=== PATIENT | male | born 1975 | race Caucasian/White ===

== ENCOUNTER → 2017-06-04 | Outpatient (CLI) | payer BC | END | disposition home or self-care (01) | LOC: GMAJ 11:09 | PROVIDERS: ATTEND Family Medicine | DX: R35.1 Nocturia (principal) ==

== ENCOUNTER → 2019-01-19 | Outpatient (CLI) | payer BC ==
--- NOTE | 2019-01-19 10:41 | RAD ---
EXAM DESCRIPTION: Pelvis CLINICAL HISTORY: 43 years Male, M25.561, M25.551 COMPARISON: None. TECHNIQUE: AP radiograph of the pelvis was performed. FINDINGS: The pelvic ring appears grossly intact on this single AP radiograph. No acute fracture or dislocation. Bilateral sacroiliac joints appear normal. Mild degenerative changes are identified in bilateral hip joints. The visualized lumbo-sacral spine demonstrates mild degenerative changes. IMPRESSION: Single AP radiograph of the pelvis demonstrates grossly intact pelvic ring. Mild bilateral hip osteoarthritis. Electronically signed by: Shanika Brantley MD 01/19/2019 10:38 AM CDT
--- NOTE | 2019-01-19 10:42 | RAD ---
EXAM DESCRIPTION: Knee,Right Complete CLINICAL HISTORY: 43 years Male, M25.561, M25.551 TECHNIQUE: 4 views of the right knee were performed. COMPARISON: None available. FINDINGS: The visualized bones appear well mineralized. No acute fracture or dislocation. Small suprapatellar joint effusion is noted. The soft tissues appear grossly unremarkable. IMPRESSION: Small suprapatellar joint effusion. No acute abnormality. Electronically signed by: Shanika Brantley MD 01/19/2019 10:39 AM CDT
== END ==
LOC: RAD 08:25
PROVIDERS: ATTEND Orthopaedic Surgery
DX: M25.561 Pain in right knee (principal); M25.461 Effusion, right knee; M16.0 Bilateral primary osteoarthritis of hip; M25.551 Pain in right hip

== ENCOUNTER → 2019-01-22 | Outpatient (CLI) | payer BC ==
--- NOTE | 2019-01-22 12:13 | MRI ---
MRI right knee without contrast INDICATION: Knee pain lateral meniscal tear TECHNIQUE: Noncontrast MR imaging right knee standard protocol FINDINGS: Small to moderate joint effusion. Small Reynolds's cyst. Mild extensor tendinosis. Mild interstitial mucoid degeneration ACL without rupture. PCL is intact. Extensive horizontal and oblique degenerative tear with free edge truncation and mild volume loss body posterior horn and anterior horn medial meniscus. Mild degenerative signal lateral meniscus. Proximal small ganglion near the proximal tib-fib joint. There is evidence of previous arthroscopy with scarring anterior medial. Therefore some of the meniscal volume loss may be postsurgical. Collateral ligaments are intact. No advanced arthrosis. IMPRESSION: Small to moderate joint effusion and small Reynolds's cyst Extensive degenerative medial meniscal tear with volume loss and part postsurgical with undersurface extension posterior horn and free edge truncation body anterior and posterior horns Interstitial mild mucoid degeneration ACL without acute rupture or pivot shift Minimal degenerative change lateral meniscus Small ganglion along the proximal tib-fib joint Previous arthroscopy with port scars Electronically signed by: Mayito Strong MD 01/22/2019 12:11 PM CDT
== END ==
LOC: MRI 07:03
PROVIDERS: ATTEND Orthopaedic Surgery
DX: S83.281A Other tear of lateral meniscus, current injury, right knee, initial encounter (principal); M71.21 Synovial cyst of popliteal space [Baker], right knee

== ENCOUNTER 2019-04-08 05:46 | Day surgery (SDC) | payer BC ==
--- NOTE | 2019-04-02 09:25 | HP ---
CHIEF COMPLAINT: 1. Right knee pain. 2. Right third digit mass. HISTORY OF PRESENT ILLNESS: Quang is a 44-year-old male with a history of pain in the knee that has been longstanding. He has had multiple knee arthroscopies. He continues to have pain and occasional mechanical symptoms. He has failed conservative measures and therefore has requested operative intervention. After discussing the risks, benefits and alternatives to operative intervention, he has given informed consent. During discussion with him, he also brought up an issue with his right third digit. He has had a mass on the palmar aspect of that. He denies any trauma related to that. 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 Because of the presence of it, he has requested excision of that. PAST SURGICAL HISTORY: 1. Multiple knee arthroscopies. MEDICATIONS: 1. Ambien. 2. Zorvolex. ALLERGIES: NO KNOWN DRUG ALLERGIES. CODE STATUS: Full code. IMMUNIZATIONS: Up to date. FAMILY HISTORY: None pertinent to today's complaint. SOCIAL HISTORY: The patient does not smoke or use any illicit drugs. He does drink on occasion. REVIEW OF SYSTEMS: Negative except as indicated in the History of Present Illness. PHYSICAL EXAMINATION: VITAL SIGNS: Blood pressure 148/93. Pulse 80. Height 5'9". Weight 236 pounds. MENTAL STATUS: The patient is awake, alert, and is able to give a good history and participate in the physical. The patient is oriented to person, place and time. SKIN: Normal tone and turgor. HEENT: Normocephalic, atraumatic. Pupils equal, round and reactive. Mucosal membranes are moist. NECK: Normal range of motion. No thyromegaly, no lymphadenopathy. CHEST: Normal respiratory excursion. CARDIAC: Regular rate and rhythm. No murmurs, rubs or gallops. MUSCULOSKELETAL: The left lower extremity shows full active range of motion without pain. He has intact sensation throughout the extremity and it is warm and well perfused. The left upper extremity shows full range of motion with 5/5 strength. Sensation is intact. It is warm and well perfused. There is no deformity. The right upper extremity shows full range of motion of the shoulder, elbow, wrist and digits. He has palpable nodular swelling at the base of the proximal phalanx. It is firm with minor discomfort over it, but no erythema and no crepitus. The rest of the extremity has no deformity. Strength is 5/5. The right lower extremity shows pain along the lateral joint-line with clicking. He does have intact sensation throughout the extremity. It is warm and well perfused. There is no malalignment. There is no varus/valgus or anterior/posterior laxity. Strength is 5/5 throughout. The hip and ankle show normal range of motion and no pain with range of motion. ASSESSMENT: 1. Meniscus tear. 2. Knee pain. 3. Ganglion cyst. PLAN: The plan at this point is for knee arthroscopy. We are additionally having him undergo cyst excision at that time. We have discussed the risks, benefits, and alternatives to both procedures and the patient has given informed consent. #[id number] [facility]
[~2019-04-08 05:46] MED LIST: LACTATED RINGERS 0 ML ONE
[2019-04-08] MEDS ORDERED: LACTATED RINGERS 0 ML ONE (06:57)
[2019-04-08] MEDS ORDERED: PROPOFOL 200 MG/20 ML VIAL IV ONE (07:00)
[2019-04-08] MEDS ORDERED: SODIUM CHLORIDE 0.9% 50 ML VIAL ONE (07:00)
[2019-04-08] MEDS ORDERED: raNITIdine HCL INJ 25 MG/ML VIAL ONE (07:00)
[2019-04-08] MEDS ORDERED: METOCLOPRAMIDE HCL INJ 10 MG/2 ML VIAL ONE (07:00)
[2019-04-08] MEDS ORDERED: LIDOCAINE 1% 10 ML VIAL INJ ONE (07:00)
[2019-04-08] MEDS ORDERED: DEXAMETHASONE INJ 10 MG/ML VIAL ONE (07:00)
[2019-04-08] MEDS ORDERED: LACTATED RINGERS 1,000 ML IVS ONE (11:30)
[2019-04-08] MEDS ORDERED: ceFAZolin SODIUM 1 GM VIAL ONE (12:36)
[2019-04-08] MEDS ORDERED: LACTATED RINGERS 1,000 ML ONE (12:36)
[2019-04-08] MEDS ORDERED: SODIUM CHL 0.9% 100ML MINI-BAG 100 ML IVPB ONE (12:36)
[2019-04-08] MEDS ORDERED: HYDROmorphone HCL INJ 2 MG/ML VIAL ONE (12:42)
[2019-04-08] MEDS ORDERED: MIDAZOLAM INJ 2 MG/2 ML VIAL ONE (12:43)
[2019-04-08] MEDS: BUPIVACAINE 0.5% 30 ML VIAL INJ ONE ×2 (13:50→14:25)
[2019-04-08] MEDS ORDERED: BUPIVACAINE LIPOSOME 13.3 MG/ML VIAL INJ ONE (14:04)
[2019-04-08] MEDS ORDERED: VANCOMYCIN HCL INJ 1,000 MG VIAL IVPB ONE (14:04)
[2019-04-08] MEDS ORDERED: ceFAZolin SODIUM 1 GM VIAL IRRIG ONE ×2 (14:08→14:36)
[2019-04-08] MEDS ORDERED: HYDROcodone 5MG/APAP 325MG 1 EA TAB ONE (15:36)
[2019-04-08 16:18] VITALS: BP 115/63; TEMP 99.4; O2SAT 97
--- NOTE | 2019-04-09 07:59 | OP ---
DATE OF PROCEDURE: 04/08/19 PREOPERATIVE DIAGNOSIS: 1. Right knee pain. 2. Cyst on the right third volar digit. POSTOPERATIVE DIAGNOSIS: 1. Ganglion cyst on the right third digit arising from the tendon sheath. A. Degenerative fraying of the medial meniscus. B. Softening and grade 2 to 3 cartilaginous changes on medial femoral condyle and medial tibial plateau. C. Remote ACL injury. D. Normal PCL. E. Tearing of the lateral meniscus. F. Loose body of the knee. G. Full thickness grade 3 to 4 changes on the lateral tibial plateau and medial femoral condyle. H. Normal lateral gutter. I. Normal supraspinatus patellar pouch. J. Grade 2 to 3 cartilaginous changes in the patellofemoral joint. K. Normal medial gutter. PROCEDURE: 1. Chondroplasty. 2. Partial lateral meniscectomy. 3. Knee arthroscopy. 4. Removal of loose bodies. 5. Excision of cyst from right hand, third digit. SURGEON: Carmine Hong MD. INJECTION MOLDING PROCESS TECHNICIAN: Yimi Hansen CST, SA-C. ANESTHESIA: General anesthesia. COMPLICATIONS: None. INDICATION: Mr. Cerrato has a long history of knee pain for which he has had multiple knee arthroscopies. He has also had knee injections and utilizing anti-inflammatories. Unfortunately, he has continued to have knee pain. Because of his ongoing pain, he has requested operative intervention. After discussing the risks, benefits and alternatives to that, the patient has given informed consent. He has also had a palpable nodule in the palmar aspect of the hand overlying the proximal phalanx of the third digit. That felt as if it was a ganglion. We discussed options. His feeling was that since he was going to be in surgery anyway, he wanted to take care of that at that time. After discussing the risks, benefits and alternatives to that, he gave informed consent for that. PROCEDURE: The patient was brought to the Operating Room and placed in supine position. General anesthesia was induced and the patient's leg was sterilely prepped and draped. Following prepping and draping, standard anteromedial and anterolateral portals were established. Diagnostic arthroscopy was carried out with the above findings. A 3.5 mm full radius shaver was used to debride the loose body that was found in there which measured about 5 x 5 mm. The tear of the lateral meniscus was debrided to a stable base. The cartilaginous surface was gently debrided as well. The knee was very thoroughly irrigated and the wounds were closed. Following that, sterile dressings were placed. Attention was then focused on the hand. The hand was sterilely prepped and draped and an incision was made obliquely over the mass. Blunt dissection was carried down to the mass and it was exposed. The massed was cored out and removed. There was no evidence of remaining cystic tissue. Following that, the wound was very thoroughly irrigated and the wound was approximated with Nylon suture. Sterile dressings were placed. The patient was awoken from anesthesia and taken to Recovery. POSTOPERATIVE PLAN: The patient will be doing range of motion of the digits and will be nonweightbearing until he follows up with us in approximately in approximately two days. #[id number] [facility]
== END 2019-04-08 16:00 | disposition home or self-care (01) ==
LOC: AMB 05:46
PROVIDERS: ATTEND Orthopaedic Surgery
DX: S83.241A Other tear of medial meniscus, current injury, right knee, initial encounter (principal); S83.281A Other tear of lateral meniscus, current injury, right knee, initial encounter; M23.41 Loose body in knee, right knee; M67.441 Ganglion, right hand; Z79.899 Other long term (current) drug therapy
CPT/HCPCS: 01400; 26160; 29881; 36415; 80048; 80307; 85025; 93005; A4216; J0690; J1100; J1170; J2250; J2765; J2780; J3370; J3490; J7050; J7120

== ENCOUNTER → 2020-02-26 | Outpatient (CLI) | payer BC ==
--- NOTE | 2020-02-26 08:12 | RAD ---
EXAM DESCRIPTION: Foot,Left 3 Views CLINICAL HISTORY: 44 years Male, PAIN IN LEFT FOOT COMPARISON: None. FINDINGS: 3 views of the left foot show no acute fracture or malalignment. No focal bone lesion or periostitis. No joint space narrowing. No radiopaque foreign body or soft tissue gas. Small calcaneal enthesophyte at the Achilles tendon insertion. IMPRESSION: Tiny calcaneal enthesophyte, otherwise unremarkable exam. Electronically signed by: Victoriano Limon MD 02/26/2020 8:10 AM CDT
== END ==
LOC: RAD 07:43
PROVIDERS: ATTEND Orthopaedic Surgery
DX: M77.32 Calcaneal spur, left foot (principal)

== ENCOUNTER → 2020-11-21 | Outpatient (CLI) | payer BC | LOC: LAB.O 09:23 | PROVIDERS: ATTEND Orthopaedic Surgery | DX: Z01.818 Encounter for other preprocedural examination (principal) ==

== ENCOUNTER → 2020-11-24 | Outpatient (CLI) | payer BC ==
--- NOTE | 2020-11-25 09:55 | RAD ---
Single frontal radiograph pelvis Indication: PAIN IN RIGHT HIP Comparison: January 19, 2019 Impression: Mild bilateral hip osteoarthritis. Mild pubic symphysis osteoarthritis. No acute fracture. Lower lumbar disc disease suspected. Electronically signed by: Domingo Little MD 11/25/2020 9:53 AM [facility]
--- NOTE | 2020-11-25 09:57 | RAD ---
EXAM DESCRIPTION: Knee,Right Complete CLINICAL HISTORY: PAIN IN RIGHT KNEE COMPARISON: None. TECHNIQUE: 19 January 2019 FINDINGS: Very mild patellofemoral joint arthritis is observed. No evidence for fracture or dislocation is seen. No joint effusion is seen. IMPRESSION: Mild patellofemoral joint arthritis is observed. No fracture or dislocation is seen. Electronically signed by: Sukhdev Escobedo MD 11/25/2020 9:55 AM [facility]
--- NOTE | 2020-11-25 09:58 | RAD ---
EXAM DESCRIPTION: Knee,Left Complete CLINICAL HISTORY: PAIN IN LEFT KNEE COMPARISON: None. TECHNIQUE: 4 views left FINDINGS: Mild medial tibial osteophyte formation is observed. No fracture is detected. A tiny joint effusion is seen. No evidence of dislocation is detected. IMPRESSION: Mild degenerative changes are observed in the medial joint compartment. No fracture or dislocation is seen. Electronically signed by: Sukhdev Escobedo MD 11/25/2020 9:57 AM [facility]
== END ==
LOC: RAD 09:43
PROVIDERS: ATTEND Orthopaedic Surgery
DX: M16.0 Bilateral primary osteoarthritis of hip (principal); M17.0 Bilateral primary osteoarthritis of knee

== ENCOUNTER → 2020-12-01 | Outpatient (CLI) | payer BC ==
--- NOTE | 2020-12-02 08:56 | MRI ---
Study: MRI of the Left Knee. Indication: TEAR OF MEDIAL MENISCUS Technique: Multiplanar, multi sequence MRI of the left knee was obtained without intravenous contrast. Comparison: None. Findings: ACL, PCL, lateral collateral, which intact. MCL is lax and bowed indicating sequela of a prior MCL sprain. No acute tear. Mild free edge truncation body medial meniscus, likely postsurgical. Obliquely oriented increased PD signal noted at the posterior horn and body medial meniscus. This could be postsurgical, however there is a suspected millimetric para meniscal cyst posterior to the posterior horn medial meniscus suggesting a recurrent tear defect. Free edge truncation body lateral meniscus, likely postsurgical with horizontally oriented degenerative signal at the anterior horn/root. Grade 2 and mild grade 3 chondral thinning medial compartment with grade 2 changes lateral compartment. Tendinosis and multifocal interstitial fissuring throughout quadriceps tendon insertion. Patellar tendon intact. Patella normally located. TT-TG distance measures 12 mm. At the superior margin of the medial/midline femoral trochlea is an 8 mm transverse by 15 mm craniocaudal site of grade 4 chondral delamination. Moderate size knee effusion. Small Reynolds's cyst. No acute fracture. Impression: Postsurgical changes medial meniscus with obliquely oriented increased PD signal at the posterior horn as well as a tiny para meniscal cyst suggesting a recurrent undersurface tear. Correlation with surgical history recommended as well as medial joint line pain. Degenerative and post surgical changes lateral meniscus without fluid-filled tear. Grade 2-3 chondral thinning medial compartment with grade 2 changes lateral compartment. Dominant area of grade 4 chondral delamination at the medial/midline femoral trochlea. Moderate size knee effusion. Electronically signed by: Domingo Little MD 12/02/2020 8:55 AM [employer]
== END ==
LOC: MRI 10:55
PROVIDERS: ATTEND Orthopaedic Surgery
DX: S83.242A Other tear of medial meniscus, current injury, left knee, initial encounter (principal); Z98.890 Other specified postprocedural states; M23.007 Cystic meniscus, unspecified meniscus, left knee; M94.262 Chondromalacia, left knee; M25.462 Effusion, left knee

== ENCOUNTER 2020-12-07 04:54 | Day surgery (SDC) | payer BC ==
[2020-12-07] MEDS ORDERED: LACTATED RINGERS 1,000 ML ONE (05:44)
[2020-12-07] MEDS ORDERED: SODIUM CHL 0.9% 100ML MINI-BAG 100 ML IVPB ONE (05:44)
[2020-12-07] MEDS ORDERED: ceFAZolin SODIUM 1 GM VIAL ONE (05:44)
[2020-12-07] MEDS ORDERED: PROPOFOL 200 MG/20 ML VIAL IV ONE (07:00)
[2020-12-07] MEDS ORDERED: MAGNESIUM SULFATE INJ 1 GM/2 ML VIAL ONE (07:00)
[2020-12-07] MEDS ORDERED: KETOROLAC TROMETHAMINE INJ 30 MG/ML VIAL ONE (07:00)
[2020-12-07] MEDS ORDERED: DEXAMETHASONE INJ 10 MG/ML VIAL ONE (07:00)
[2020-12-07] MEDS ORDERED: LACTATED RINGERS 1,000 ML IVS ONE (09:10)
[2020-12-07] MEDS ORDERED: fentaNYL CITRATE INJ 50 MCG/ML 2 ML AMP ONE (09:59)
[2020-12-07] MEDS ORDERED: KETAMINE HCL 100 MG/ML VIAL ONE (09:59)
[2020-12-07] MEDS ORDERED: MIDAZOLAM INJ 2 MG/2 ML VIAL ONE (09:59)
[2020-12-07] MEDS: BUPIVACAINE 0.5% 30 ML VIAL INJ ONE ×2 (10:15→10:58)
[2020-12-07] MEDS: BUPIVACAINE LIPOSOME 13.3 MG/ML VIAL INJ ONE ×2 (10:15→10:58)
[2020-12-07] MEDS: VANCOMYCIN HCL INJ 1,000 MG VIAL IVPB ONE ×3 (10:44→10:55)
[2020-12-07] MEDS: ceFAZolin SODIUM 1 GM VIAL ONE ×3 (10:44→10:55)
[2020-12-07] MEDS ORDERED: HYDROcodone 5MG/APAP 325MG 1 EA TAB PO ONE (11:45)
[2020-12-07] MEDS ORDERED: HYDROcodone 5MG/APAP 325MG 1 EA TAB ONE (11:46)
[2020-12-07 11:52] VITALS: BP 122/84; TEMP 97.1; O2SAT 98
--- NOTE | 2020-12-09 14:00 | OP ---
DATE OF PROCEDURE: 12/07/20 PREOPERATIVE DIAGNOSIS: 1. Left knee pain. POSTOPERATIVE DIAGNOSIS: 1. Large full thickness defect in the patellofemoral joint. 2. Degenerative tearing of the medial meniscus. 3. Softening of the cartilage of the medial compartment. 4. Multiple small loose bodies. SURGEON: Carmine Hong MD. BUSINESS OFFICE COORDINATOR: Yimi Hansen CST, SA-C. ANESTHESIA: General anesthesia. INDICATION: Pedro has a history of acute onset of pain when he was climbing up a ladder. The pain was severe and sharp and caused an effusion. Because of the pain, he requested further evaluation. After discussing the risks, benefits and alternatives to operative therapy, informed consent was obtained for that. PROCEDURE: The patient was brought to the Operating Room and placed in supine position. General anesthesia was induced and the patient's leg was sterilely prepped and draped. Following prepping and draping, standard anteromedial and anterolateral portals were established. Diagnostic arthroscopy was then carried out with the above findings. An accessory superolateral portal was made to insert a probe so that I could tell the extent of the defect on the femoral trochlea. The defect extended and there were loose cartilage edges, at least 4 mm on either side. The cartilage itself appeared to be intact and therefore I did not remove it from that so that I could avoid exposing more bone at this point. The medial meniscus was debrided with a 3.5 mm full radius shaver and the aforementioned loose bodies were removed. The knee was thoroughly irrigated and drained. Following draining of the knee, the wounds were closed with Nylon suture. Sterile dressings were placed. The patient was awoken from anesthesia and taken to Recovery. POSTOPERATIVE PLAN: The patient will be non-weightbearing until followup with us in about two days. At that point, we will discuss further the findings at surgery and we will also discuss options for future treatment. #[id number] [facility]
== END 2020-12-07 12:16 | disposition home or self-care (01) ==
LOC: AMB 04:54
PROVIDERS: ATTEND Orthopaedic Surgery
DX: S83.242A Other tear of medial meniscus, current injury, left knee, initial encounter (principal); M23.42 Loose body in knee, left knee; M94.262 Chondromalacia, left knee; R00.1 Bradycardia, unspecified; Z79.899 Other long term (current) drug therapy
CPT/HCPCS: 01400; 29881; 36415; 80048; 80307; 81001; 85025; J0690; J1100; J1885; J2250; J3010; J3370; J3475; J3490; J7050; J7120